=== PATIENT | female | born 1955 | race Caucasian/White ===

== ENCOUNTER 2019-07-02 18:54 | Emergency (ER) | payer MEDICAID ==
[~2019-07-02] VITALS: Ht 157.5 cm; Wt 91.6 kg
[2019-07-02 19:25] LABS: BASOPHILS # (AUTO) 0.1 /CMM (0.0-0.2); HEMATOCRIT 46 % (33-45); HEMOGLOBIN 14.9 g/dL (11.5-14.8); LYMPHOCYTES # (AUTO) 2.5 /CMM (0.8-4.8); LYMPHOCYTES % (AUTO) 38.7 % (20.0-44.0); MEAN CORPUSCULAR HGB CONC 33 g/dl (31.0-36.0); MEAN CORPUSCULAR VOLUME 90 fL (82-100); MONOCYTES # (AUTO) 0.6 /CMM (0.1-1.30); MONOCYTES % (AUTO) 9.3 % (2.0-12.0); NEUTROPHILS # (AUTO) 3.1 /CMM (1.8-8.9); PLATELET COUNT (AUTO) 198 /CMM (150-450); RED BLOOD CELL COUNT(AUTO) 5.08 MIL/uL (4.0-5.2); WHITE BLOOD COUNT (AUTO) 6.5 K/uL (4.3-11.0)
--- NOTE | 2019-07-02 19:32 | NUR ---
RADIOLOGY AT BEDSIDE FOR XRAY
[2019-07-02 19:34] LABS: CALCIUM, SERUM 9.7 mg/dL (8.5-10.1); CARBON DIOXIDE 27 mmol/L (21-32); CHLORIDE 104 mmol/L (98-107); CREATININE 0.6 mg/dL (0.6-1.3); GLUCOSE 119 mg/dL (74-106); POTASSIUM 3.6 mmol/L (3.5-5.1); SODIUM SERUM 140 mmol/L (136-145); UREA NITROGEN, BLOOD 12 mg/dL (7-18)
[2019-07-02] MEDS ORDERED: ONDANSETRON HCL/PF 4 MG/2 ML VIAL ONE (19:50)
[2019-07-02] MEDS ORDERED: FAMOTIDINE/PF INJ 20 MG/2 ML VIAL IV ONE ×2 (19:51→20:00)
[2019-07-02] MEDS ORDERED: ONDANSETRON HCL/PF 4 MG/2 ML VIAL IV ONE (20:00)
[2019-07-02 20:03] LABS: BILIRUBIN,DIRECT 0.1 mg/dL (0.0-0.2); BILIRUBIN,TOTAL 0.5 mg/dL (0.2-1.0); TOTAL PROTEIN, SERUM 8.4 g/dL (6.4-8.2)
--- NOTE | 2019-07-02 21:07 | NUR ---
IV removed. Catheter intact and site benign. Pressure and 4x4 applied to site. No bleeding noted.Patient discharged to home in stable condition. Written and verbal after care instructions given. Patient verbalizes understanding of instruction.
[2019-07-02 21:15] VITALS: BP 141/98
== END 2019-07-02 21:16 | disposition home or self-care (01) ==
LOC: ER 18:57
DX: R07.89 Other chest pain (principal); I10 Essential (primary) hypertension; E11.9 Type 2 diabetes mellitus without complications
CPT/HCPCS: 36415; 71045; 80048; 80076; 83690; 84484; 85025; 93005 ×2; 96374; 96375; 99284; J2405; J3490

== ENCOUNTER 2023-03-19 23:44 | Emergency (ER) | payer MEDICARE, OTHER ==
[~2023-03-19] VITALS: Ht 157.5 cm; Wt 90.7 kg
[2023-03-20] MEDS ORDERED: HYDROCODONE/APAP 5/325MG TABLET PO ONE (00:30)
[2023-03-20] MEDS ORDERED: HYDROCODONE/APAP 5/325MG TABLET ONE (00:36)
[2023-03-20 01:48] VITALS: BP 145/74; TEMP 98.1; O2SAT 98
== END 2023-03-20 01:48 | disposition home or self-care (01) ==
LOC: ER 23:46
DX: M79.651 Pain in right thigh (principal); M79.652 Pain in left thigh; G20 Parkinson's disease; I10 Essential (primary) hypertension; E11.9 Type 2 diabetes mellitus without complications
CPT/HCPCS: 93970-TC

== ENCOUNTER 2025-04-23 12:17 | Emergency (ER) | payer MEDICARE, OTHER ==
[~2025-04-23] VITALS: Ht 157.5 cm; Wt 83.0 kg
[2025-04-23 12:29] VITALS: BP 132/73; TEMP 98.6
[2025-04-23] MEDS ORDERED: CLIN150C16 PO (13:31)
[2025-04-23 14:05] VITALS: O2SAT 97
[2025-04-24] MEDS ORDERED: VALA100026 PO (12:14)
== END 2025-04-23 14:06 | disposition home or self-care (01) ==
LOC: ER 12:21
DX: L03.311 Cellulitis of abdominal wall (principal); I10 Essential (primary) hypertension; E11.9 Type 2 diabetes mellitus without complications; Z88.1 Allergy status to other antibiotic agents

== ENCOUNTER 2025-04-24 11:46 | Emergency (ER) | payer MEDICARE, OTHER ==
[~2025-04-24] VITALS: Ht 154.9 cm; Wt 84.8 kg
[~2025-04-24 11:46] MED LIST: CLIN150C16 PO
[2025-04-24 11:56] VITALS: BP 126/71; TEMP 98.4
[2025-04-24] MEDS ORDERED: VALA100026 PO (12:14)
[2025-04-24 12:46] VITALS: O2SAT 98
== END 2025-04-24 12:46 | disposition home or self-care (01) ==
LOC: ER 11:50
DX: B02.9 Zoster without complications (principal); I10 Essential (primary) hypertension; E11.9 Type 2 diabetes mellitus without complications; Z79.624 Long term (current) use of inhibitors of nucleotide synthesis; Z88.1 Allergy status to other antibiotic agents

== ENCOUNTER 2025-04-28 12:14 | Emergency (ER) | payer MEDICARE, OTHER ==
[~2025-04-28] VITALS: Ht 154.9 cm; Wt 88.5 kg
[~2025-04-28 12:14] MED LIST changes: +VALA100026 PO
[2025-04-28] MEDS ORDERED: HYDR28.32 TP (12:55)
[2025-04-28 13:41] VITALS: BP 136/75; TEMP 98.2; O2SAT 99
== END 2025-04-28 13:42 | disposition home or self-care (01) ==
LOC: ER 12:19
DX: S30.11XA Contusion of abdominal wall, initial encounter (principal); T50.995A Adverse effect of other drugs, medicaments and biological substances, initial encounter; E11.9 Type 2 diabetes mellitus without complications; I10 Essential (primary) hypertension; Z79.624 Long term (current) use of inhibitors of nucleotide synthesis; Z88.1 Allergy status to other antibiotic agents